=== PATIENT | female | born 1980 | race Caucasian/White ===

== ENCOUNTER 2023-12-28 16:29 | Outpatient (CLI) | payer OTHER ==
[2023-12-29 05:17] LABS: HSV 1 IGG TYPE SPEC <0.91 index (0.00-0.90); HSV 2 IGG TYPE SPEC 9.61 index (0.00-0.90)
[2023-12-29 15:50] LABS: BACTERIAL VAGINOSIS DNA POSITIVE (NEGATIVE); CANDIDA GLABRATA DNA NEGATIVE (NEGATIVE); CANDIDA GROUP DNA NEGATIVE (NEGATIVE); CANDIDA KRUSEI DNA NEGATIVE (NEGATIVE); TRICHOMONAS VAGINALIS DNA NEGATIVE (NEGATIVE)
[2023-12-29 15:53] LABS: CHLAMYDIA TRACHOMATIS DNA NEGATIVE (NEGATIVE); NEISSERIA GONORRHOEAE DNA NEGATIVE (NEGATIVE)
== END 2023-12-28 16:30 | disposition home or self-care (01) ==
LOC: LAB 16:29
PROVIDERS: ATTEND Nurse Practitioner
DX: Z11.3 Encounter for screening for infections with a predominantly sexual mode of transmission (principal)
CPT/HCPCS: 36415; 81514; 86695; 86696; 87491; 87591; 87661